=== PATIENT | male | born 1975 | race African-American/Black ===

== ENCOUNTER 2018-11-05 00:10 | Inpatient (IN) ==
[2018-11-05 00:58] LABS: BASO# 0.04 X1000 (0.0-0.2); BASO% 0.4 % (0.0-0.8); EOS# 0.13 X1000 (0.0-0.7); EOS% 1.4 % (0.0-10.0); HEMATOCRIT 40.9 % (42.0-52.0); HEMOGLOBIN 14.1 g/dL (14.0-18.0); IMM GRAN# 0.04 X1000 (0.0-0.04); IMM GRAN% 0.4 % (0.0-0.5); LYMPH# 2.53 X1000 (1.2-3.4); LYMPH% 27.9 % (20.5-51.1); MCH 29.4 PG (27-31); MCHC 34.5 g/dL (33-37); MCV 85.4 FL (81-99); MONO% 8.8 % (1.7-9.3); NEUT# 5.54 X1000 (1.4-6.5); NEUT% 61.1 % (42.2-75.2); PLT 256 X1000 (130-400); RBC 4.79 XMIL (4.7-6.1); RDW 13.1 % (11.5-14.5); WBC 9.08 X1000 (4.8-10.8)
[2018-11-05] MEDS ORDERED: ZOFRAN IV ONE (01:01)
[2018-11-05] MEDS ORDERED: DILAUDID IV ONE ×2 (01:01→02:08)
[2018-11-05] MEDS ORDERED: KEFZOL 1 GM/D5W 1 GM/50 ML IVPB IV ONE ×2 (01:02→01:38)
[2018-11-05 01:16] LABS: URINE SOURCE CLEAN CATCH
[2018-11-05 01:16] LABS: AGAP 14; ALB/GLOB RATIO 1.5; ALBUMIN 4.1 g/dL (3.5-5.0); ALKALINE PHOSPHATASE 91 U/L (32-122); BUN 18 mg/dL (8-22); CALCIUM 8.6 mg/dL (8.8-10.2); CHLORIDE 103 mmol/L (98-107); COSMO 285; CREATININE 1.1 mg/dL (0.7-1.2); ESTIMATED GFR > 60; GLUCOSE 160 mg/dL (70-104); GOT 22 U/L (10-34); GPT 22 U/L (10-44); POTASSIUM 3.4 mmol/L (3.5-5.1); SODIUM 140 mmol/L (136-145); TCO2 23 mmol/L (25-35); TOTAL BILIRUBIN 0.24 mg/dL (0.20-1.00); TOTAL PROTEIN 6.9 g/dL (6.3-8.3)
[2018-11-05 01:20] LABS: BILIRUBIN URINE NEGATIVE (NEGATIVE); BLOOD URINE NEGATIVE (NEGATIVE); COLOR YELLOW; GLUCOSE URINE NEGATIVE (NEGATIVE); KETONE URINE NEGATIVE (NEGATIVE); LEUKOCYTES URINE MODERATE (NEGATIVE); NITRITE URINE NEGATIVE (NEGATIVE); PROTEIN URINE 100 mg/dL (NEGATIVE); SP GRAVITY URINE 1.025; TURBIDITY URINE CLEAR (CLEAR); UROBILINOGEN URINE NORMAL (NORMAL)
[2018-11-05 01:21] LABS: UR EPITHELIAL CELLS <10 /HPF (<10); URINE BACTERIA NEGATIVE /HPF; URINE RBC <10 /HPF (<10); URINE WBC 20-40 /HPF (<10)
[2018-11-05 01:23] LABS: PTT 30.1 Seconds (22.3-41.8)
[2018-11-05] MEDS ORDERED: NS 1,000 ML IV ONE (01:39)
--- NOTE | 2018-11-05 01:54 | PROVIDER DOCUMENTATION ---
This chart was entered by Alexa Peters Scribe, acting as scribe for Jagdish Gibbons MD. 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 pt has exposed bone in rt ankle and bleeding controlled. pt arrived via ems. pt denies any other injuries. Review of Systems - Adult - REVIEW OF SYSTEMS - ADULT Constitutional: reports: no symptoms reported Eyes: reports: no symptoms reported Ears, Nose, Mouth & Throat: reports: no symptoms reported Cardiovascular: reports: no symptoms reported Respiratory: reports: no symptoms reported Gastrointestinal: reports: no symptoms reported Genitourinary: reports: no symptoms reported Musculoskeletal: reports: no symptoms reported, see HPI, joint pain (rt ankle). denies: back pain, muscle aches, neck pain Integumentary: reports: no symptoms reported Neurological: reports: no symptoms reported Psychiatric: reports: no symptoms reported Endocrine: reports: no symptoms reported Hematologic/Lymphatic: reports: no symptoms reported Allergic/Immunologic: reports: no symptoms reported All Other Systems: Reviewed and Negative Past History - Adult - PAST MEDICAL HISTORY-ADULT Review of Records: reports: Old Records Reviewed, Nursing Assessment Review, Medications Reviewed, Social history reviewed & non-contributory. Major Childhood Illnesses: reports: denies history Cardiovascular: reports: denies history Respiratory: reports: denies history Gastrointestinal: reports: GERD Obstetrical/Gynecological: reports: denies history Genitourinary: reports: denies history Musculoskeletal: reports: denies history Neurological: reports: denies history Endocrine/Immune: reports: denies history Other Conditions: reports: denies history - PRIOR SURGERIES/PROCEDURES Surgical/Procedure History: reports: orthopedic (extremity) - IMMUNIZATION STATUS Childhood Immunizations: See Nurse Assessment Flu Vaccine: See Nurse Assessment - FAMILY HISTORY Family History: reviewed, not pertinent - SOCIAL HISTORY Smoking: cigarettes, greater than 1 pack/day Provider spent 3-5 mins advising pt. on dangers of tobacco.: Discussed manners to quit use, and f/u contacts for add'l counseling. Substance Use: alcohol Alcohol Use Frequency: occasionally Physical Exam-Injury Related - Physical Exam-Injury Related Initial Vital Signs Reviewed: Yes General Appearance: alert, mild distress. negative: slow to respond, obtunded, combative Eyes: PERRL/EOMI, pink conjunctivae Head, Ears, Nose, Mouth & Throat: normocephalic/atraumatic, moist mucous membranes, normal ENT inspection Neck: non-tender, full range of motion, supple, normal inspection. negative: pain with axial compression, muscle spasm, pain on movement Respiratory: chest non-tender, lungs clear, normal breath sounds Cardiovascular: normal peripheral pulses, no edema, no gallop, no JVD, no murmur , tachycardia. negative: regular rate, rhythm, JVD, bradycardia Chest/Breast: deferred Peripheral Pulses: radial (R): 2+, radial (L): 2+ Abdominal Exam: normal bowel sounds, non tender, soft Male Genitalia: deferred Rectal Exam: deferred Hemoccult Exam: deferred Lymphatic: no adenopathy Back Exam: normal inspection, no CVA tenderness, no vertebral tenderness. negative: ecchymosis, swelling, vertebral tenderness Extremity: deformity (rt ankle visible bone), swelling (rt ankle), tenderness (r t ankle). negative: normal range of motion, non-tender, normal inspection, erythema, inflammation Integumentary: normal color, warm/dry Neurologic: grossly normal, no motor/sensory deficits Psych/Mental Status: normal mood/affect, normal thought content, normal thought process, oriented x 3 - Glascow Coma Score Best Eye Response ([place]): (4) open spontaneously Best Verbal Response ([place]): (5) oriented Best Motor Response ([place]): (6) obeys commands [place]ike Total: 15 Progress - PLAN OF CARE/RESULTS Progress/Plan/Lab Results: Vital Signs - 8 hr 11/05/18 00:28 Temperature 98.9 F Pulse Rate 123 H Respiratory Rate 18 Blood Pressure 176/114 O2 Sat by Pulse Oximetry 97 Laboratory Results - last 24 hr 11/05/18 11/05/18 11/05/18 00:44 00:44 00:44 WBC 9.08 RBC 4.79 Hgb 14.1 Hct 40.9 L MCV 85.4 MCH 29.4 MCHC 34.5 RDW Std Deviation 13.1 Plt Count 256 MPV 10.0 Immature Gran % (Auto) 0.4 Neut % (Auto) 61.1 Lymph % (Auto) 27.9 Rooks % (Auto) 8.8 Eos % (Auto) 1.4 Baso % (Auto) 0.4 Immature Gran # (Auto) 0.04 Neut # (Auto) 5.54 Lymph # (Auto) 2.53 Rooks # (Auto) 0.80 H Eos # (Auto) 0.13 Baso # (Auto) 0.04 PT 14.0 INR 1.00 PTT (Actin FS) 30.1 Sodium 140 Potassium 3.4 L Chloride 103 Carbon Dioxide 23 L Anion Gap 14 BUN 18 Creatinine 1.1 Estimated GFR/1.73 m2 > 60 BUN/Creatinine Ratio 16 Glucose 160 H Calculated Osmolality 285 Calcium 8.6 L Total Bilirubin 0.24 AST 22 ALT 22 Alkaline Phosphatase 91 Total Protein 6.9 Albumin 4.1 Globulin 2.8 Albumin/Globulin Ratio 1.5 Urine Source Urine Color Urine Turbidity Urine pH Ur Specific Justice Urine Protein Ur Glucose (Stick) Ur Ketones (Stick) Urine Blood Urine Nitrite Urine Bilirubin Urobilinogen Dipstick Urine Leukocytes Urine WBC (Auto) Urine RBC (Auto) U Epithel Cells (Auto) Urine Bacteria (Auto) 11/05/18 00:55 WBC RBC Hgb Hct MCV MCH MCHC RDW Std Deviation Plt Count MPV Immature Gran % (Auto) Neut % (Auto) Lymph % (Auto) Rooks % (Auto) Eos % (Auto) Baso % (Auto) Immature Gran # (Auto) Neut # (Auto) Lymph # (Auto) Rooks # (Auto) Eos # (Auto) Baso # (Auto) PT INR PTT (Actin FS) Sodium Potassium Chloride Carbon Dioxide Anion Gap BUN Creatinine Estimated GFR/1.73 m2 BUN/Creatinine Ratio Glucose Calculated Osmolality Calcium Total Bilirubin AST ALT Alkaline Phosphatase Total Protein Albumin Globulin Albumin/Globulin Ratio Urine Source CLEAN CATCH Urine Color YELLOW Urine Turbidity CLEAR Urine pH 6.0 Ur Specific Justice 1.025 Urine Protein 100 A Ur Glucose (Stick) NEGATIVE Ur Ketones (Stick) NEGATIVE Urine Blood NEGATIVE Urine Nitrite NEGATIVE Urine Bilirubin NEGATIVE Urobilinogen Dipstick NORMAL Urine Leukocytes MODERATE A Urine WBC (Auto) 20-40 A Urine RBC (Auto) <10 U Epithel Cells (Auto) <10 Urine Bacteria (Auto) NEGATIVE Orders Category Date Time Status Nursing- Obtain EKG ONCE Care 11/05/18 00:20 Active ANKLE COMPLETE RIGHT [RAD] Stat Exams 11/05/18 00:20 Taken CBC WITH ELECTRONIC DIFF [HEME] Stat Lab 11/05/18 00:44 Completed COMPREHENSIVE METABOLIC PANEL [CHEM] Stat Lab 11/05/18 00:44 Completed PROTIME WITH INR [COAG] Stat Lab 11/05/18 00:44 Completed PTT [COAG] Stat Lab 11/05/18 00:44 Completed URINALYSIS [URINALYSIS] Stat Lab 11/05/18 00:55 Completed 0.9% Sodium Chloride Inj [Ns] 1,000 ml Med 11/05/18 01:39 Active IV 999 mls/hr Cefazolin 1 gm/D5w [Kefzol 1 gm/D5w] Med 11/05/18 01:02 Discontinued 1 gm in 50 ml IV NOW Cefazolin 1 gm/D5w [Kefzol 1 gm/D5w] Med 11/05/18 01:38 Active 1 gm in 50 ml IV NOW Hydromorphone [Dilaudid] Med 11/05/18 01:01 Discontinued 1 mg IV NOW ONE Ondansetron [Zofran] Med 11/05/18 01:01 Discontinued 4 mg IV NOW ONE EKG [EKG] Stat Ther 11/05/18 00:20 Ordered Result Diagrams: 11/05/18 00:44 11/05/18 00:44 - EKG 1 Time of EKG reading by physician:: 01:30 EKG Read and Signed by:: Jagdish Gibbons EKG Interpretation (*Must complete 3 of following elements*): Normal Rate: 115 Rhythm: ST [place]: normal QRS: normal [place] Interval: normal ST Wave: normal - CONSULTS/PCP/HOSPITALIST Notification #1 *Consult/PCP/Hospitalist*: Dr Lowry Time Discussed: 01:51 Reason/Comments: Plan is to take to surg at 530. asked for irrigate, sterile saline wet dres Consult Disposition: Will see in ED, Admit (dressing, npo, and admit.) Departure - Departure Date of Disposition Decision: 11/05/18 Time of Disposition Decision: 01:53 DIAGNOSIS: Trimalleolar fracture of ankle, open, Fall Disposition: ADMITTED INPATIENT 09 Certified Medical Emergency: Emergent Condition: Fair - Critical Care Note This patient required my direct & personal management of CC.: Yes Total Time (mins): 35 Critical Care Statement: This patient required my direct personal management to treat or rule out processes, the absence of which, could potentiallly result in sudden, clinically significant life or limb threatening deterioration. Attestation - Physician/ AYESHA Attestation Patient care was provided by Advanced Practice Provider:: No The physician spent face to face time with patient:: Yes Advanced Practice Provider documentation review:: Supervising physician onsite and consulted in the evaluation and care of this patient. The physician did have a face to face encounter with the patient. This chart was documented by the indicated scribe, (Alexa Peters Scribe) and accurately reflects the services I performed and decisions made by me, Jagdish Jimenez MD, as attested by the provider's signature.
[2018-11-05] MEDS ORDERED: ZOFRAN IV PRN ×2 (02:01→09:13)
[2018-11-05] MEDS: DILAUDID IV PRN ×6 (05:11→22:59)
[2018-11-05] MEDS ORDERED: DIPRIVAN 1% ONE (05:37)
[2018-11-05] MEDS ORDERED: FENTANYL ONE (05:38)
[2018-11-05] MEDS ORDERED: VERSED ONE (05:42)
[2018-11-05] MEDS ORDERED: KEFZOL 1 GM/D5W 1 GM/50 ML IVPB ONE (06:09)
[2018-11-05] MEDS ORDERED: PRECEDEX ONE (06:23)
[2018-11-05] MEDS ORDERED: KETAMINE ONE (06:24)
[2018-11-05] MEDS ORDERED: SODIUM CHLORIDE 0.9% 10 ML ONE (06:55)
[2018-11-05] MEDS ORDERED: NEO-SYNEPHRINE ONE (06:55)
[2018-11-05] MEDS ORDERED: ROBINUL ONE (07:17)
[2018-11-05] MEDS ORDERED: NEOSTIGMINE ONE (07:17)
[2018-11-05] MEDS ORDERED: VENTOLIN HFA ONE (07:43)
--- NOTE | 2018-11-05 07:55 | Diag Imaging Result Doc PS360 ---
ANKLE COMPLETE RIGHT - 11/05/2018 INDICATION: fall TECHNIQUE: Three views COMPARISON: None FINDINGS: There is severely displaced fracture of the distal tibia and fibula. There is comminuted displaced fracture of the distal tibia shaft, with lateral displacement by 100%. There is also distal fibular shaft fracture with lateral displacement and overlapping. There is a fracture line through the medial and lateral malleoli but these are not very badly displaced. The hindfoot appears intact. IMPRESSION: Severely displaced distal tibia and fibula fractures. Electronically signed by Tomas Wick 11/05/2018 7:53 AM
--- NOTE | 2018-11-05 08:09 | EKG Report ---
Test Performed on : 11/05/2018 01:30:23 AM Test Reason : surgery clearance Blood Pressure : / mmHG Vent. Rate : 115 BPM Atrial Rate : 115 BPM P-R Int : 138 ms QRS Dur : 094 ms QT Int : 348 ms P-R-T Axes : 049 045 016 degrees QTc Int : 481 ms Sinus tachycardia. Otherwise normal ECG When compared with ECG of 26-AUG-2013 09:47, Vent. rate has increased BY 39 BPM Unconfirmed Result
--- NOTE | 2018-11-05 08:13 | Diag Imaging Result Doc PS360 ---
CHEST-PORTABLE - 11/05/2018 INDICATION: post op COMPARISON: 08/22/2015 FINDINGS: There are some linear atelectasis in the right upper lobe. No infiltrates or edema. No pneumothorax or pleural effusion. Heart size and pulmonary vascularity is normal. IMPRESSION: Mild linear atelectasis in the right upper lobe. Electronically signed by Tomas Wick 11/05/2018 8:10 AM
--- NOTE | 2018-11-05 10:57 | HISTORY AND PHYSICAL ---
DATE: 11/05/2018 HISTORY OF PRESENT ILLNESS: Mr. Cleaning is a 43-year-old male, who had jumped off a balcony, felt a pop in his ankle and he saw some exposed bone. He was taken to the ER. They diagnosed him with open distal tibia fracture. Ancef was given medially and he was made n.p.o. for surgery this morning. PAST MEDICAL HISTORY: Reflux. PAST SURGICAL HISTORY: He says he has had this orthopedic work done before. ALLERGIES: No known drug allergies. MEDICATIONS: Per the medical record. SOCIAL HISTORY: He does smoke a little bit more than a pack a day of cigarettes. REVIEW OF SYSTEMS: Positive for this right ankle pain. All other systems are essentially negative. PHYSICAL EXAMINATION: General: Well-developed, well-nourished male. He is in no acute distress. Head and Neck: Normocephalic, atraumatic. Respirations: Nonlabored breathing. Cardiovascular: Regular pulse. Abdomen: Nondistended. Right lower extremity exam: There was a dressing over the wound. He has obvious deformity at the right ankle. He does have good sensation to light touch to the toes. He can move the toes, dorsiflexion and plantar flexion, very well. Left lower extremity exam: No tenderness to palpation of the left lower extremity. RADIOGRAPHS: Several views of the right ankle show a distal tibia pilon fracture. A lot of displacement laterally. ASSESSMENT: Right open tibial pilon fracture. PLAN: Mr. Cleaning already got 2 g of IV Ancef. We will take him to the OR this morning for irrigation, debridement and placement of external fixator. I went over with him the procedure, risks, benefits, potential complications. Risks include, but are not limited to infection, wound healing problems, damage to nerves, arteries, veins, numbness, malunion, nonunion, hardware- related issues, continued pain, need for further surgery, DVT and anesthesia-related risks. After discussing these with the patient, he expressed understanding and wished to proceed. Will proceed to the OR now. cc: Donavan Lowry MD
[2018-11-05] MEDS: OXY IR PO PRN ×4 (13:21→20:39)
[2018-11-05] MEDS: KEFZOL 1 GM/D5W 1 GM/50 ML IVPB IV SCH ×2 (13:27→22:30)
--- NOTE | 2018-11-05 15:21 | OPERATIVE NOTE ---
PROCEDURE DATE: 11/05/2018 PREOPERATIVE DIAGNOSES: 1. Right grade IIIA open tibial pilon fracture. 2. Right open lateral malleolus fracture. POSTOPERATIVE DIAGNOSES: 1. Right grade IIIA open tibial pilon fracture. 2. Right open lateral malleolus fracture. PROCEDURE: 1. Right irrigation and debridement to bone, distal tibia and fibula. 2. Right application of multiplane Delta Frame external fixator. SURGEON: Donavan Lowry MD TRIM CARPENTER: CANDACE Ennis, who was an integral part of the case, helping with all aspects of the case and helping to increase our OR efficiency greatly. ANESTHESIA: General with endotracheal intubation. TOURNIQUET TIME: Less than an hour. ESTIMATED BLOOD LOSS: About 50 mL. DISPOSITION: To PACU, hemodynamically stable. IMPLANTS: Synthes large external fixator. INDICATION FOR PROCEDURE: Mr. Cleaning is a 43-year-old male who had jumped off a balcony and sustained the right lower extremity injury. He presented to the emergency department early Sunday on 11/05/2018. He received 2 g IV Ancef when he came in. I discussed with him and his family about operative intervention. They both expressed understanding and wished to proceed. DESCRIPTION OF PROCEDURE: Mr. Cleaning was identified in the preoperative holding area. Right leg was marked as the correct surgical site. He was then wheeled to the operating room and placed supine on the operating table. All bony prominences well padded. He was induced under general anesthesia. Endotracheal tube was placed. Right lower extremity was then prepped with Betadine and Betadine solution and draped in normal sterile fashion. Surgical pause was performed. We identified the correct patient, correct side, and the correct procedure, and that preoperative antibiotics had been given, and we gave another gram of Ancef as well. Looking at the injury overall, he had a large laceration more transverse over the medial aspect of the distal legs. About 8 to 10 cm of the distal tibia was completely exposed and stripped of periosteum. Through the wound, you could also see that distal fibula very easily. Where the fracture was there was a lot of periosteal stripping and even some muscle damage as well. It looked like his posterior tibial tendon was intact. There was no brisk bleeding. We did put up the tourniquet. At this point, I was then able to be used a curette and curetted the end of all exposed bony areas, including the distal shaft of the tibia and fibula and the proximal fracture of the tibia and fibula. I did not see any dirt or debris in the wound at all and all the soft tissues looked to be in good condition. We then irrigated everything copiously with normal saline after our thorough debridement. We irrigated with over 9 L of saline. After I felt we had really good debridement and irrigation, I then reduced the fracture. I made 2 small incisions on the proximal tibia. I used 2 external fixator pins in the tibia and then I used 1 external fixator pin in the calcaneus. I made a small incision there and then placed it. We used a Delta Frame which was multiplanar to help rotational stability. We attached all the frames and then I pulled the fracture out to length and reduced it in both AP and lateral views and then we tightened everything down at that point to keep everything locked in that position. Final images were taken which showed that we had a good reduction overall and it looked like we were out to length of checking the distal fibula and the distal tibia. I then closed that medial wound in a layered fashion. I closed some of the periosteum over the bone using 0 Maxon which is a monofilament nonabsorbable suture. I closed some of the soft tissue with 0 Maxon as well and then we used nylon on the skin to close the laceration and that actually closed really well and there was not hardly much tension at all on the closure. I then put a posterior splint on, Adaptic, 4 x 4's, ABD, and Sof-Rol were applied and then the splint. He was then awoken from general anesthesia, moved to his own bed, and taken to PACU in stable condition. PLAN: Postoperatively, he will be nonweightbearing, right lower extremity. I admitted him to the hospital. We will keep an eye on his wound over the next few days. He will get some IV antibiotics postoperatively. cc: MD SETH Stern
[2018-11-05] MEDS: ZANTAC PO PRN (20:39)
[2018-11-05] MEDS: PERIDEX MT SCH (20:39)
[2018-11-06] MEDS: OXY IR PO PRN ×4 (01:00→19:43)
[2018-11-06] MEDS: DILAUDID IV PRN ×2 (03:10→07:53)
[2018-11-06] MEDS: LOVENOX SUBQ SCH (05:37)
[2018-11-06] MEDS: PRILOSEC PO SCH ×2 (05:37→06:23)
[2018-11-06] MEDS: KEFZOL 1 GM/D5W 1 GM/50 ML IVPB IV SCH (05:37)
[2018-11-06] MEDS ORDERED: GENTAMICIN IV PER PHARMACY MISC SCH (06:30)
--- NOTE | 2018-11-06 08:16 | Diag Imaging Result Doc PS360 ---
EXAM: CHEST-2 VIEWS INDICATION: post op TECHNIQUE: 2 views COMPARISON: 11/05/2018 FINDINGS: There is evidence of prior granulomatous disease, stable. The lungs are grossly clear. There is no discrete pleural fluid collection or pneumothorax. The cardiomediastinal silhouette and central vasculature are grossly unremarkable. IMPRESSION: No evidence of acute pathology by plain radiograph. Electronically signed by Mando Peters 11/06/2018 8:14 AM
[2018-11-06] MEDS ORDERED: NS IV ONE (08:30)
[2018-11-06] MEDS ORDERED: GENTAMICIN IV ONE (08:30)
--- NOTE | 2018-11-06 09:42 | ORTHOPAEDICS PROGRESS NOTE ---
DATE: 11/06/2018 SUBJECTIVE: Mr. Cleaning is lying in bed this morning. Overall pain is fairly well controlled. OBJECTIVE: Right lower extremity exam: Ex fix is clean and intact. The splint is clean, dry, and intact. He does have good dorsiflexion and plantar flexion of the toes. He has good sensation to light touch to the dorsal aspect of the toes and the forefoot and the plantar aspect of the toes and forefoot. He has good capillary refill to the toes as well. ASSESSMENT: Status post irrigation debridement grade 3A open distal tibia and fibular fractures with external fixation. PLAN: Mr. Cleaning is going to continue his prophylactic antibiotics today. We will plan on taking the dressing down tomorrow and evaluating his lacerated area. If anything looks like it may be trying to develop infection then we would plan on doing another washout in the operating room. If everything looks nice and clean and dry we will continue to watch it. I will keep him NPO after midnight tonight just in case we do need to do a wash out tomorrow. cc: Donavan Lowry MD
[2018-11-06] MEDS: PERIDEX MT SCH ×2 (10:18→19:44)
[2018-11-06] MEDS: MOTRIN PO PRN (16:22)
[2018-11-06] MEDS: ZANTAC PO PRN (19:47)
[2018-11-07] MEDS: PERIDEX MT SCH ×3 (01:42→23:23)
[2018-11-07] MEDS: PRILOSEC PO SCH ×2 (05:43→07:56)
[2018-11-07] MEDS: LOVENOX SUBQ SCH ×2 (05:44→07:56)
[2018-11-07] MEDS: OXY IR PO PRN ×5 (05:55→23:22)
[2018-11-07] MEDS: DILAUDID IV PRN (06:51)
--- NOTE | 2018-11-07 17:41 | Diag Imaging Result Doc PS360 ---
EXAM: CHEST-1 VIEW 11/07/2018 HISTORY: sepsis protocol TECHNIQUE: AP portable at 1717 COMMENT: There is calcified nodes in the right paratracheal region. There is no evidence of acute cardiac or pulmonary disease. The appearance of the chest has not changed significantly since 11/06/2018. IMPRESSION: Stable chest. Electronically signed by Bobby Beck 11/07/2018 5:38 PM
[2018-11-07 18:22] LABS: INR 1.04; PROTIME 14.4 Seconds (11.0-16.0)
[2018-11-07 18:23] LABS: PTT 27.5 Seconds (22.3-41.8)
[2018-11-07 18:26] LABS: BASO# 0.02 X1000 (0.0-0.2); BASO% 0.3 % (0.0-0.8); EOS# 0.19 X1000 (0.0-0.7); EOS% 2.5 % (0.0-10.0); HEMOGLOBIN 11.3 g/dL (14.0-18.0); IMM GRAN# 0.05 X1000 (0.0-0.04); IMM GRAN% 0.7 % (0.0-0.5); LYMPH# 0.95 X1000 (1.2-3.4); LYMPH% 12.5 % (20.5-51.1); MCH 29.2 PG (27-31); MCHC 33.2 g/dL (33-37); MCV 87.9 FL (81-99); MONO# 1.58 X1000 (0.11-0.59); MONO% 20.9 % (1.7-9.3); MPV 10.4 FL (7.4-10.4); NEUT# 4.78 X1000 (1.4-6.5); NEUT% 63.1 % (42.2-75.2); PLT 199 X1000 (130-400); RBC 3.87 XMIL (4.7-6.1); RDW 12.8 % (11.5-14.5); WBC 7.57 X1000 (4.8-10.8)
[2018-11-07 18:37] LABS: AGAP 8; ALB/GLOB RATIO 1.3; ALBUMIN 3.4 g/dL (3.5-5.0); ALKALINE PHOSPHATASE 80 U/L (32-122); BUN 11 mg/dL (8-22); CHLORIDE 100 mmol/L (98-107); COSMO 278; ESTIMATED GFR > 60; GLUCOSE 180 mg/dL (70-104); GOT 37 U/L (10-34); GPT 23 U/L (10-44); POTASSIUM 4.1 mmol/L (3.5-5.1); SODIUM 137 mmol/L (136-145); TCO2 29 mmol/L (25-35); TOTAL BILIRUBIN 0.25 mg/dL (0.20-1.00)
[2018-11-07 18:39] LABS: CK PROFILE 1079 U/L (24-204)
[2018-11-07 18:55] LABS: CK INDEX 0.2 (0.0-2.5)
[2018-11-07 19:33] LABS: EOS 4 % (1-10); LYMPHS 8 % (21-51); MONO 10 % (1-9); SEGS 76 % (42-75)
[2018-11-08] MEDS: OXY IR PO PRN ×2 (06:07→11:12)
[2018-11-08] MEDS: PRILOSEC PO SCH (06:07)
[2018-11-08] MEDS: MOTRIN PO PRN (06:07)
[2018-11-08] MEDS: LOVENOX SUBQ SCH (06:13)
--- NOTE | 2018-11-08 09:24 | Diag Imaging Result Doc PS360 ---
EXAM: CT EXT LOWER RIGHT W/O CON 11/08/2018 HISTORY: Open fracture TECHNIQUE: CT of the right lower leg and ankle COMMENT: There is a fracture of the distal fibular shaft and a comminuted fracture of the distal tibia including the plafond. There is also a fracture of the distal fibula just above the ankle mortise. There is a pin passing through the calcaneus posteriorly. The talus appears to be intact. 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 IMPRESSION: Fracture of the distal fibula in two places and comminuted fracture of the distal tibia including the articular surface of the plafond. Electronically signed by Bobby Beck 11/08/2018 9:21 AM
[2018-11-08] MEDS: PERIDEX MT SCH (10:51)
[2018-11-08 12:02] VITALS: BP 123/69
--- NOTE | 2018-12-06 13:34 | DISCHARGE SUMMARY ---
ADMISSION DATE: 11/05/2018 DISCHARGE DATE: 11/08/2018 ADMITTING DIAGNOSIS: Right open tibial pilon fracture. DISCHARGE DIAGNOSIS: Right open tibial pilon fracture. PROCEDURES: On 11/05/2017, Dr. Lowry performed a right irrigation and debridement to bone of the distal tibia and fibula with a right application of multiplane delta frame external fixator. HOSPITAL COURSE: Mr. Cleaning is a 43-year-old male who jumped off a balcony the evening of 11/04 and sustained a right lower extremity injury. He presented to the [facility] Emergency Department early 11/05/2018. He received 2 g of IV Ancef on arrival. He was found to have an open tibia fracture. Dr. Lowry was consulted, and he was prepped for surgery. Risks and benefits of the procedure, and not doing the procedure were both discussed, and the patient wished to proceed with surgery. The patient was taken to the operating room where satisfactory anesthesia was obtained. He tolerated the procedure well, and was transferred to the recovery room. After satisfactory recovery, he was transferred to [address] [place] [address]. He had a pretty uneventful postoperative course. He did stay a few days so he could continue to receive IV antibiotic therapy [*]fracture. He was nonweightbearing to the right lower extremity. He did have an external fixation device in place. He did spike temperature on 11/08 of 102.9. His temperature today on 11/08 at noon is 99. His pulse is 85. His respirations are 18, his blood pressure is 123/69, and he is 96% on room air. His wound looks good. There is no erythema or drainage. His white count has remained stable today. It is 7.57. His hemoglobin and hematocrit are 11.3 and 34. His platelet count is 199,000. His BUN is 11, his creatinine is 1. At this time, we believe he is ready for discharge home to self-care. DISCHARGE MEDICATIONS: 1. Aspirin 325 mg p.o. twice a day. 2. Percocet 5 mg p.o. every 6 hours as needed for pain. 3. Prilosec 20 mg p.o. daily. 4. Zantac 150 mg p.o. as needed. DISCHARGE DISPOSITION: Mr. Cleaning will be discharged home to self-care. He does have a supportive family member at the bedside. He is to be nonweightbearing in his right lower extremity. He will have the external fixation device in place. We are going to follow him up in a week in the office. If his wound and swelling, and everything is looking good, we will plan on doing a permanent fixation in 1 to 2 weeks. If he has any questions or concerns, he knows to call the office right away. Dictated by CANDACE Ennis for Donavan Lowry MD cc: CANDACE Ennis MD
== END 2018-11-08 14:39 | disposition home or self-care (01) | DRG 494 ==
LOC: ED 00:10 → SURHOLD 03:11 → 4N 08:15
PROVIDERS: ADMIT Orthopaedic Surgery; ATTEND Orthopaedic Surgery
CPT/HCPCS: 71010; 71020; 71045; 71046; 73610; 73700; 76000; 80053; 81001; 82550; 82553; 83605; 84484; 85025; 85610; 85730; 86850; 86900; 86901; 87040; 93005; 94761; 94799; 96365; 96368; 96375; 96376; 99285; A9270; J0690; J1170; J1580; J1650; J2250; J2370; J2405; J3010; J7030

== ENCOUNTER 2018-11-21 06:56 | Observation (INO) ==
[2018-11-21] MEDS ORDERED: LR 1,000 ML ONE (07:14)
[2018-11-21] MEDS ORDERED: PEPCID ONE (07:14)
[2018-11-21] MEDS ORDERED: REGLAN ONE (07:14)
[2018-11-21] MEDS ORDERED: KEFZOL 1 GM/D5W 2 GM/100 ML IVPB ONE (07:14)
[2018-11-21] MEDS ORDERED: VALIUM ONE (08:43)
[2018-11-21] MEDS ORDERED: XYLOCAINE-MPF 2% ONE ×2 (08:59→09:13)
[2018-11-21] MEDS ORDERED: DIPRIVAN 1% ONE (08:59)
[2018-11-21] MEDS ORDERED: ROBINUL ONE ×2 (08:59→11:45)
[2018-11-21] MEDS ORDERED: VERSED ONE (09:06)
[2018-11-21] MEDS ORDERED: NAROPIN 0.5% ONE (09:13)
[2018-11-21] MEDS ORDERED: OFIRMEV 1000 MG/ISOTONIC SOLN 0 MG/0 ML BOTTLE ONE (10:10)
[2018-11-21] MEDS ORDERED: ZOFRAN ONE ×2 (10:10→13:27)
[2018-11-21] MEDS ORDERED: TORADOL ONE ×2 (10:10→13:27)
[2018-11-21] MEDS ORDERED: DECADRON ONE ×2 (10:10→13:27)
[2018-11-21] MEDS ORDERED: FENTANYL ONE (11:42)
[2018-11-21] MEDS ORDERED: ZEMURON ONE (11:44)
[2018-11-21] MEDS ORDERED: NEOSTIGMINE ONE (11:46)
[2018-11-21] MEDS ORDERED: MORPHINE IV PRN (13:03)
[2018-11-21] MEDS ORDERED: SENOKOT PO PRN (13:03)
[2018-11-21] MEDS ORDERED: OFIRMEV 1000 MG/ISOTONIC SOLN 1,000 MG/100 ML BOTTLE ONE (13:27)
[2018-11-21] MEDS: KEFZOL 1 GM/D5W 1 GM/50 ML IVPB IV SCH (17:25)
--- NOTE | 2018-11-21 18:34 | OPERATIVE NOTE ---
PROCEDURE DATE: 11/21/2018 PREOPERATIVE DIAGNOSES: 1. Right grade 3A open tibial pilon fracture. 2. Right grade 3A open segmental distal fibula fracture. 3. Right external fixator in place. POSTOPERATIVE DIAGNOSES: 1. Right grade 3A open tibial pilon fracture. 2. Right grade 3A open segmental distal fibula fracture. 3. Right external fixator in place. PROCEDURES: 1. Right open reduction and internal fixation of tibial pilon fracture, both fibula and tibia. 2. Right removal of external fixator device. 3. A 22 modifier for unusual procedure. SURGEON: Dr. Donavan Lowry. DEPUTY DIRECTOR OF FINANCE: CANDACE Ennis, who was an integral part of the case, helping with all aspects of the case, helping to increase our OR efficiency greatly. ANESTHESIA: General with LMA. TOURNIQUET TIME: 130 minutes. IMPLANTS: 1. [employer] tibial pilon plate and screws. 2. [employer] 1/3 tubular plate and screws. DISPOSITION: To PACU, hemodynamically stable. INDICATION FOR PROCEDURE: Mr. Cleaning is a 43-year-old male who initially presented a few weeks ago to the emergency department with an open tib-fib fracture. Washed him out, ex fixed him, and closed his laceration. It was a grade 3A with a lot of soft tissue stripping off the tibia. Fortunately, he has not gotten infected and that wound has been looking pretty good. He has sloughed some of the outer skin. His swelling has come down, and so I discussed with him in clinic about operative intervention for definitive fixation. He expressed understanding and wished to proceed. DESCRIPTION OF PROCEDURE: Mr. Cleaning was identified in the preoperative holding area. Right ankle was marked as correct surgical site. He was then wheeled to the operating room, placed supine on the operating table. All bony prominences were well padded. He was induced under general anesthesia. LMA was placed. Tourniquet was placed to the right thigh. Right lower extremity was then prepped with chlorhexidine gluconate scrub and then ChloraPrep, and draped in a normal sterile fashion. Surgical pause was performed. We identified the correct patient, correct side, and the correct procedure. Preop antibiotics were given. The external fixator was prepped in its entirety. We removed the lateral bar and kept the medial bar to keep our length during the procedure. The leg was elevated and tourniquet was inflated to 300 mmHg. I started first with fixing the distal fibula. We made a longitudinal incision more on the posterior aspect of that fibula. Dissection was carried down. We came in more from a posterior approach, so we saw the peroneals pretty easily. We retracted those posteriorly and then identified the fracture, both proximally and distally of the fibula. The distal fracture was not really displaced, but the proximal one was. Once I had identified the fracture site, I was able to clean out some of the soft tissue that was in there. We did have to pull a good bit of traction, but I was able to get that fibula aligned back up and back out to length. Fortunately, it was such a fracture type that it keyed in really well. I used a bone reduction clamp to hold my reduction there. Then, we used a 10 hole 1/3 tubular plate. We mainly bent it to the curvature of the bone, secured it proximally and then distally. We spanned past the whole segmental piece, put 2 screws down in the distal fibula, 2 screws in the segmental piece, and then 3 screws proximally. Length lag at that point actually looked really good. Alignment looked great fluoroscopically. I went ahead and then closed the deep layer over the fibula so that the skin would not be retracted for a long time. I then made more of an anterolateral incision over the ankle and dissection was carried down between the EHL and the EDL. We saw our neurovascular bundle and protected it the entire case. I then came down onto the periosteum and then made an arthrotomy at the ankle as well. Came up proximally and identified the fracture site, and it was very comminuted. I then irrigated everything copiously with normal saline. I did not see any evidence of purulence that was there and even though a lot of the soft tissue had been stripped off the tibia, nothing looked infected. We washed it out anyway. I then begin to break apart a little bit of that anterior piece and free it up so that we could look down into the fracture site. I did dig out that cortical fragment that had been shoved down onto the ankle joint and removed it, and it was just a free piece devoid of any soft tissue, so we got rid of it. I cleaned out that anterolateral gutter that was down there as well from a lot of loose pieces, and then used a Fraga tip suction to suction out the joint to make sure there were no bony fragments in the joint itself. I was then able to reduce the articular fragments together and temporarily pin them with K-wires. Fluoroscopic imaging showed that we actually had a good reduction on the AP, mortise and lateral views. I then placed some lag screws over their guidewires to hold all those articular fragments in, and it was actually lagging together very well. After this, it looked like he was in just a little bit of valgus with the joint line, and so I got my anterolateral plate on. I secured it to the bone with temporary fixation on the lateral aspect of the distal fragment. I then pulled down on the plate to get him out of valgus, and the bone actually keyed in really well medially on that spike and got him out of valgus, and I secured it proximally then with some cortex screws. Fluoroscopic imaging at this point then looked like the joint looked great. We then placed locking screws distally and nonlocking screws proximally. Feeling in on the joint with a Parlin elevator, I felt like the joint felt really good clinically, and then fluoroscopic imaging showed that we had restored the dome and that actually looked really good, also. At this point, I took it through a range of motion as well. I did not feel any crepitus. I did not feel any impingement of ankle joint movement. He was missing some metaphyseal bone. I decided not to bone graft that area secondary to him having a grade 3A open injury. We will just let everything heal in. I put a 22 modifier secondary to the degree of soft tissue stripping and the difficulty of getting this tibia reduced and the fibula reduced since it was comminuted. I then closed the deep layer, closed our arthrotomy with 0 Vicryl. I closed the retinacular layer over the tendons with 0 Vicryl, 2-0 Vicryl for the subcutaneous, and olman on the skin. I did the same with the fibular incision. Once we got everything closed, I then removed the medial bar of the external fixator, and then I used a drill and removed the external fixator pins. There were 2 in the tibia and 1 in the calcaneus. After this, final images were taken which showed that we had a very good reduction of our fracture sites. The joint looked nice and reduced. I did not see any diastasis there. External rotation stress test did not open up medially or laterally. On the lateral view, it looked like our dome looked good and all the hardware looked to be in good position. We then placed a silver Mepilex dressing over the skin that had sort of sloughed off over the traumatic laceration site medially, and then Xeroform over our incisions we made today, and 4x4s, ABD, Sof- Rol, and posterior splint were applied. Tourniquet was let down at 130 minutes, which was really at the end of closing, and patient had good capillary refill return to the toes. He was then awoken from general anesthesia, moved to his own bed, and taken to the PACU in stable condition. Postoperatively, he will be nonweightbearing, right lower extremity. We are going to admit him to observation for 24 hours of IV antibiotics. If everything goes well, then he will be discharged home tomorrow. cc: Donavan Lowry MD
[2018-11-21] MEDS: OXY IR PO PRN ×2 (19:53→23:50)
[2018-11-21] MEDS: ZOFRAN IV PRN (19:54)
[2018-11-22] MEDS ORDERED: ZANTAC PO ONE (00:05)
[2018-11-22] MEDS: OXY IR PO PRN ×2 (03:33→06:58)
[2018-11-22] MEDS: ZOFRAN IV PRN (03:33)
[2018-11-22] MEDS: KEFZOL 1 GM/D5W 1 GM/50 ML IVPB IV SCH ×2 (03:34→09:26)
[2018-11-22 04:36] VITALS: BP 136/73
[2018-11-22] MEDS ORDERED: LOVENOX SUBQ SCH (06:00)
--- NOTE | 2018-11-22 09:58 | ORTHOPAEDICS PROGRESS NOTE ---
DATE: 11/22/2018 SUBJECTIVE: Mr. Cleaning is lying in bed this morning. Overall pain seems controlled. OBJECTIVE: Right lower extremity exam, splint is clean, dry, and intact. He says he really cannot move his toes and he has numbness to his toes. He has good capillary refill to all the toes. ASSESSMENT: Status post external fixator removal, open reduction internal fixation tibial pilon fracture and lateral malleolus fracture. PLAN: 1. I discussed Mr. Cleaning about these big injuries like this. Sometimes he will have nerve issues that are permanent. Sometimes it does take a long time for the nerves to regenerate. 2. We will have to follow from a bony standpoint. All the hardware now is internal. We will continue to watch his wound and I will see him back in clinic in a week. He is nonweightbearing right lower extremity. We will more than likely be able to discharge him today. I will send him home with p.o. antibiotic. cc: Donavan Lowry MD
--- NOTE | 2018-11-22 21:47 | DISCHARGE SUMMARY ---
ADMISSION DATE: 11/21/2018 DISCHARGE DATE: 11/22/2018 ADMITTING DIAGNOSIS: Right grade 3A open tibia pilon fracture. DISCHARGE DIAGNOSIS: Status post right open reduction, internal fixation of tibial pilon fracture of both fibula and tibia. PROCEDURES: 1. Right open reduction, internal fixation of tibial pilon fracture, both fibula and tibia by Dr. Lowry on 11/21/2018. 2. Right removal external fixator device also by Dr. Lowry. HOSPITAL COURSE: Mr. Cleaning is a 43-year-old male who initially presented about 2 weeks ago to the emergency department with an open tibia-fibula fracture. He was washed now that morning by Dr. Lowry in the OR and an external fixation device was placed on him after he was reduced. We have been following him in the office over the last 2 weeks. His wound has been clean. There has been no erythema or drainage. His swelling has come down and his reduction has been maintained. On his last visit to the office it was decided he was ready for surgical intervention. On 11/21/2018, he was taken the operating room for primary fixation. Dr. Lowry discussed risks and benefits with him. He was taken to the operating room where satisfactory anesthesia was obtained. He tolerated the procedure well was transferred to recovery room. After satisfactory recovery, he was transferred to [address] [place] [address]. He has had an uneventful postoperative course. He has been nonweightbearing on this right lower extremity. He has received 3 doses of Kefzol. We did an observation admission to make sure he got this [*] dose of antibiotics. Everything looks good today. There are no signs of infection. There are no recent labs on him. His discharge vital signs, his temperature is 98.3 degrees, pulse is 76, respirations 21, his blood pressure is 136/73, he is 98% on room air. He has voided 3 times. He has had a bowel movement. At this point he is ready for discharge. DISCHARGE MEDICATIONS: Aspirin 325 mg p.o. twice daily, Percocet 5 mg p.o. every 6 hours as needed for pain. No other home medications. DISCHARGE DISPOSITION: Mr. Cleaning will be discharged home today. He will be discharged home to self-care. He does have a supportive family member at bedside. He will be nonweightbearing to the right lower extremity. We are going to follow up with him in 1 week in clinic to take down his surgical splint and address his incisions as well as that wound from the open fracture. We discussed with him signs and symptoms of postoperative infection, when to call the ER. Again he will be nonweightbearing to his right lower extremity. He knows to call the office with any questions or concerns. We are going to do the aspirin twice a day for DVT prophylaxis. Will do Percocet for pain control. Dictated by CANDACE Ennis for Donavan Lowry MD cc: CANDACE Ennis MD
== END 2018-11-22 11:52 | disposition home or self-care (01) ==
LOC: PAT 06:56 → OPS 06:56 → 4N 06:56
PROVIDERS: ADMIT Orthopaedic Surgery; ATTEND Orthopaedic Surgery
CPT/HCPCS: 76000; 94761; 94799; A9270; J0131; J0690; J1100; J1650; J1885; J2250; J2270; J2405; J2795; J3010; J7120